=== PATIENT | female | born 1995 | race American Indian/Alaskan Native ===

== ENCOUNTER 2018-08-19 10:19 | Emergency (ER) | payer MEDICAID ==
--- NOTE | 2018-08-19 10:46 | Emergency Department Report ---
ED HPI - General Chief complaint: Vaginal Bleeding Stated complaint: 18WKS BLEEDING/LOWER BACK PAIN Time Seen by Provider: 08/19/18 10:44 Source: patient Mode of arrival: Ambulatory Limitations: No Limitations - History of Present Illness Initial comments: Patient is a 23-year-old female comes to the ER today complaining of vaginal bleeding and back pain. She states that she is approximately 18 weeks with her last menstrual cycle being 116 2018. She this would be her third . She has 2 living children. Patient is ambulatory in no acute distress. She states that she's been taking vitamins. She denies any falls, she denies dysuria. She denies passing any tissue from the vaginal vault. MD Complaint: abdominal pain, vaginal bleeding Severity: mild Associated symptoms: vaginal bleeding :: Yes Number of weeks : 18 Pre-aj care: none - Related Data : 3 Para: 2 Previous Rx's Medication Instructions Recorded Last Taken Type Naproxen [Naprosyn] 500 mg PO BID PRN #20 tablet 08/19/18 Unknown Rx traMADol [Ultram] 50 mg PO Q6HR PRN #12 tablet 08/19/18 Unknown Rx Allergies Allergy/AdvReac Type Severity Reaction Status Date / Time No Known Allergies Allergy Unverified 08/19/18 10:23 ED Review of Systems ROS: Stated complaint: 18WKS BLEEDING/LOWER BACK PAIN Other details as noted in HPI Comment: All other systems reviewed and negative Constitutional: denies: chills Eyes: denies: eye pain ENT: denies: throat pain Respiratory: denies: orthopnea Cardiovascular: denies: palpitations Endocrine: denies: excessive sweating Genitourinary: as per HPI. denies: urgency, dysuria Musculoskeletal: as per HPI, back pain Skin: denies: lesions Neurological: denies: headache Psychiatric: denies: anxiety Hematological/Lymphatic: denies: easy bleeding ED Past Medical Hx - Past Medical History Previous Medical History?: No - Surgical History Past Surgical History?: No - Family History Family history: no significant - Social History Smoking Status: Never Smoker Substance Use Type: None - Medications Home Medications: Home Medications Medication Instructions Recorded Confirmed Last Taken Type Naproxen [Naprosyn] 500 mg PO BID PRN #20 tablet 08/19/18 Unknown Rx traMADol [Ultram] 50 mg PO Q6HR PRN #12 tablet 08/19/18 Unknown Rx ED Physical Exam - General Limitations: No Limitations General appearance: alert - Head Head exam: Present: atraumatic - Eye Eye exam: Present: normal appearance, PERRL - ENT ENT exam: Present: mucous membranes moist - Neck Neck exam: Present: normal inspection - Respiratory Respiratory exam: Present: normal lung sounds bilaterally - Cardiovascular Cardiovascular Exam: Present: regular rate - GI/Abdominal GI/Abdominal exam: Present: soft, normal bowel sounds - Rectal Rectal exam: Present: deferred - Extremities Exam Extremities exam: Present: normal inspection, full ROM - Back Exam Back exam: Present: normal inspection, full ROM. Absent: CVA tenderness (R), CVA tenderness (L) - Neurological Exam Neurological exam: Present: alert, oriented X3 - Psychiatric Psychiatric exam: Present: normal affect, normal mood - Skin Skin exam: Present: warm, dry, intact ED Course Vital Signs 08/19/18 08/19/18 10:25 15:18 Temperature 98.0 F Pulse Rate 79 83 Respiratory 18 16 Rate Blood Pressure 109/54 Blood Pressure 104/59 [Right] O2 Sat by Pulse 100 98 Oximetry ED Medical Decision Making - Lab Data Result diagrams: 08/19/18 11:23 08/19/18 11:23 - Radiology Data Radiology results: report reviewed, image reviewed - Medical Decision Making US NOTED Lab Results 08/19/18 08/19/18 08/19/18 Range/Units 11:23 11:23 11:23 WBC 3.6 L (4.5-11.0) K/mm3 RBC 4.10 (3.65-5.03) M/mm3 Hgb 9.8 L (10.1-14.3) gm/dl Hct 31.7 (30.3-42.9) % MCV 77 L (79-97) fl MCH 24 L (28-32) pg MCHC 31 (30-34) % RDW 16.9 H (13.2-15.2) % Plt Count 149 (140-440) K/mm3 Sodium 141 (137-145) mmol/L Potassium 4.0 (3.6-5.0) mmol/L Chloride 104.1 (98-107) mmol/L Carbon Dioxide 25 (22-30) mmol/L Anion Gap 16 mmol/L BUN 7 (7-17) mg/dL Creatinine 0.5 L (0.7-1.2) mg/dL Estimated GFR > 60 ml/min BUN/Creatinine Ratio 14 % Glucose 102 H (65-100) mg/dL Calcium 9.2 (8.4-10.2) mg/dL Total Bilirubin 0.30 (0.1-1.2) mg/dL AST 30 (5-40) units/L ALT 31 (7-56) units/L Alkaline Phosphatase 95 (35-129) units/L Total Protein 8.0 (6.3-8.2) g/dL Albumin 4.8 (3.9-5) g/dL Albumin/Globulin Ratio 1.5 % HCG, Quant 7172 H (0-4) mIU/mL Urine Color (Yellow) Urine Turbidity (Clear) Urine pH (5.0-7.0) Ur Specific [place] (1.003-1.030) Urine Protein (Negative) mg/dL Urine Glucose (UA) (Negative) mg/dL Urine Ketones (Negative) mg/dL Urine Blood (Negative) Urine Nitrite (Negative) Ur Reducing Substances Urine Bilirubin (Negative) Urine Ictotest Urine Urobilinogen (<2.0) mg/dL Ur Leukocyte Esterase (Negative) Urine WBC (Auto) (0.0-6.0) /HPF Urine RBC (Auto) (0.0-6.0) /HPF U Epithel Cells (Auto) (0-13.0) /HPF Urine Mucus /HPF Blood Type 08/19/18 08/19/18 Range/Units 11:23 11:42 WBC (4.5-11.0) K/mm3 RBC (3.65-5.03) M/mm3 Hgb (10.1-14.3) gm/dl Hct (30.3-42.9) % MCV (79-97) fl MCH (28-32) pg MCHC (30-34) % RDW (13.2-15.2) % Plt Count (140-440) K/mm3 Sodium (137-145) mmol/L Potassium (3.6-5.0) mmol/L Chloride (98-107) mmol/L Carbon Dioxide (22-30) mmol/L Anion Gap mmol/L BUN (7-17) mg/dL Creatinine (0.7-1.2) mg/dL Estimated GFR ml/min BUN/Creatinine Ratio % Glucose (65-100) mg/dL Calcium (8.4-10.2) mg/dL Total Bilirubin (0.1-1.2) mg/dL AST (5-40) units/L ALT (7-56) units/L Alkaline Phosphatase (35-129) units/L Total Protein (6.3-8.2) g/dL Albumin (3.9-5) g/dL Albumin/Globulin Ratio % HCG, Quant (0-4) mIU/mL Urine Color Yellow (Yellow) Urine Turbidity Clear (Clear) Urine pH 7.0 (5.0-7.0) Ur Specific [place] 1.016 (1.003-1.030) Urine Protein <15 mg/dl (Negative) mg/dL Urine Glucose (UA) Neg (Negative) mg/dL Urine Ketones Neg (Negative) mg/dL Urine Blood Lg (Negative) Urine Nitrite Neg (Negative) Ur Reducing Substances Not Reportable Urine Bilirubin Neg (Negative) Urine Ictotest Not Reportable Urine Urobilinogen < 2.0 (<2.0) mg/dL Ur Leukocyte Esterase Neg (Negative) Urine WBC (Auto) 2.0 (0.0-6.0) /HPF Urine RBC (Auto) 87.0 (0.0-6.0) /HPF U Epithel Cells (Auto) < 1.0 (0-13.0) /HPF Urine Mucus Few /HPF Blood Type O POSITIVE Vital Signs 08/19/18 08/19/18 10:25 15:18 Temperature 98.0 F Pulse Rate 79 83 Respiratory 18 16 Rate Blood Pressure 109/54 Blood Pressure 104/59 [Right] O2 Sat by Pulse 100 98 Oximetry RH POS DISCUSSED AT LENGTH WITH PT THE FINDINGS OF TODAYS EXAM . SHE IS HERE WITH HER THEY BOTH UNDERSTAND THAT SHE NEEDS TO BE SEEN BY OBGYN WITHIN 48 HOURS VSS ON DC AMBULATORY AND TAKING PO Critical care attestation.: If time is entered above; I have spent that time in minutes in the direct care of this critically ill patient, excluding procedure time. ED Disposition Clinical Impression: , Threatened Disposition: DC-01 TO HOME OR SELFCARE Is pt being admited?: No Does the pt Need Aspirin: No Condition: Stable Instructions: Spontaneous Miscarriage (ED), Threatened Miscarriage (ED) Additional Instructions: FOLLOW UP WITH OBGYN IN 48 HOURS FOR REPEAT TESTS [address] [facility] LET THEM KNOW YOU WERE HERE AND THEY CAN PULL THE IMAGES FROM ULTRASOUND REFERRAL BELOW Prescriptions: Naproxen [Naprosyn] 500 mg PO BID PRN #20 tablet PRN Reason: Pain traMADol [Ultram] 50 mg PO Q6HR PRN #12 tablet PRN Reason: Pain Referrals: RAS DOHERTY MD [Staff Physician] - 3-5 Days Time of Disposition: 11:23
[2018-08-19 11:48] LABS: Hematocrit 31.7 % (30.3-42.9); Hemoglobin 9.8 gm/dl (10.1-14.3); Mean Corpuscular HGB Conc 31 % (30-34); Mean Corpuscular Volume 77 fl (79-97); Platelet Count 149 K/mm3 (140-440); Red Cell Distribution Width 16.9 % (13.2-15.2)
[2018-08-19 11:59] LABS: Mucus,Urine FEW /HPF
[2018-08-19 12:00] LABS: Bilirubin,Urine NEG (Negative); Blood,Urine LG (Negative); Color,Urine Yellow (Yellow); Protein,Urine <15 mg/dL mg/dL (Negative); Urobilinogen,Urine < 2.0 mg/dL (<2.0)
[2018-08-19 12:06] LABS: Alanine Aminotransferase 31 units/L (7-56); Albumin 4.8 g/dL (3.9-5); BUN/Creatinine Ratio 14; Blood Urea Nitrogen 7 mg/dL (7-17); Calcium 9.2 mg/dL (8.4-10.2); Hemolysis Index 3
--- NOTE | 2018-08-19 14:43 | Ultrasound Report ---
ULTRASOUND OB LESS THAN 14 WEEKS FETUS ULTRASOUND OB TRANSVAGINAL HISTORY: Vaginal bleeding during . COMPARISON: None. FINDINGS: Transabdominal and transvaginal ultrasound imaging was performed. The uterus is anteverted and measures 8 x 5 x 6 cm. There appears to be at least one intramural fibroid in the lower anterior uterine wall measuring 1.4 cm. An intrauterine gestational sac containing a small pole is identified. No heart activity or heart rate could be demonstrated on Doppler interrogation. [place]-rump length correlates with an 8 week 0 day . The right ovary is unremarkable measuring 2.2 x 1.4 x 1.9 cm. The left ovary contains a slightly complex 1.8 cm cyst and measures 2.9 x 1.6 x 3.1 cm No pelvic fluid collection. IMPRESSION: demise. Slightly complex left ovarian cyst, probable corpus luteum cyst. Uterine fibroid.
[2018-08-19] MEDS ORDERED: PERCOCET 5/325 PO ONE (15:06)
[2018-08-19 15:19] VITALS: BP 104/59
== END 2018-08-19 15:27 | disposition home or self-care (01) ==
LOC: ED 10:19
DX: O20.0 Threatened abortion (principal); Z3A.18 18 weeks gestation of pregnancy
CPT/HCPCS: 36415; 76801; 76817; 80053; 81001; 84702; 85027; 86900; 86901; 99284